=== PATIENT | female | born 1970 | race African-American/Black ===

== ENCOUNTER 2024-02-14 15:18 | Outpatient (CLI) | payer BC | END 2024-02-14 15:19 | disposition home or self-care (01) | LOC: SCSRAD 15:18 | PROVIDERS: ATTEND Nurse Practitioner Family | DX: S93.502A Unspecified sprain of left great toe, initial encounter (principal); S92.412A Displaced fracture of proximal phalanx of left great toe, initial encounter for closed fracture ==